=== PATIENT | male | born 1980 | race Caucasian/White ===

== ENCOUNTER 2018-05-16 19:16 | Emergency (ER) | payer OTHER ==
[~2018-05-16] VITALS: Ht 182.9 cm; Wt 136.4 kg
[2018-05-16 20:18] VITALS: BP 128/75
== END 2018-05-16 21:19 | disposition home or self-care (01) ==
LOC: ER 19:16
DX: I10 Essential (primary) hypertension (principal); F41.0 Panic disorder [episodic paroxysmal anxiety]
CPT/HCPCS: 93005; 99284

== ENCOUNTER 2018-05-28 22:46 | Emergency (ER) | payer SELFPAY ==
[~2018-05-28] VITALS: Ht 182.9 cm; Wt 128.0 kg
[2018-05-29] MEDS ORDERED: AZIT-63 PO (00:50)
[2018-05-29 00:58] VITALS: BP 135/79
== END 2018-05-29 01:00 | disposition home or self-care (01) ==
LOC: ER 22:47
DX: J01.00 Acute maxillary sinusitis, unspecified (principal); I10 Essential (primary) hypertension; R53.1 Weakness; R53.83 Other fatigue; R42 Dizziness and giddiness; Z79.2 Long term (current) use of antibiotics
CPT/HCPCS: 82948; 99283

== ENCOUNTER 2018-06-12 14:44 | Emergency (ER) | payer SELFPAY ==
[~2018-06-12] VITALS: Ht 182.9 cm; Wt 136.4 kg
[~2018-06-12 14:44] MED LIST: AZIT-63 PO
[2018-06-12] MEDS ORDERED: AMOX-580 PO (15:26)
[2018-06-12 15:39] LABS: BASOPHILS % (AUTO) 0.4 % (0-1); EOSINOPHILS # (AUTO) 0.2 X10'3 (0-0.9); EOSINOPHILS % (AUTO) 1.5 % (0-6); HEMATOCRIT 43.6 % (42.0-52.0); HEMOGLOBIN 14.8 g/dl (14.0-17.9); LYMPHOCYTES # (AUTO) 1.6 X10'3 (1.1-4.8); LYMPHOCYTES % (AUTO) 15.3 % (21-51); MEAN CORPUSCULAR HEMOGLOBIN 27.8 PG (27.0-31.0); MEAN CORPUSCULAR HGB CONC 33.8 % (33.0-36.5); MEAN PLATELET VOLUME 7.1 FL (7.4-10.4); MONOCYTES # (AUTO) 0.5 X10'3 (0-0.9); MONOCYTES % (AUTO) 5.2 % (2-12); NEUTROPHILS % (AUTO) 77.6 % (42-75); PLATELET COUNT 396 X10'3 (140-440); RED BLOOD COUNT 5.32 X10'6 (4.70-6.10); RED CELL DISTRIBUTION WIDTH 13.7 % (11.5-14.5); WHITE BLOOD COUNT 10.3 X10'3 (4.5-11.0)
[2018-06-12 15:49] LABS: ALBUMIN 3.7 G/DL (3.4-5.0); ANION GAP 9 (8-16); BLOOD UREA NITROGEN 12 MG/DL (7-18); BUN/CREATININE RATIO 11.9 (5.4-32.0); CALCIUM 9.3 MG/DL (8.5-10.1); CHLORIDE 100 MMOL/L (99-107); CREATININE 1.01 MG/DL (0.60-1.10); GLUCOSE 120 MG/DL (70-104); POTASSIUM 3.4 MMOL/L (3.5-5.1); SODIUM 135 MMOL/L (135-145); TOTAL CARBON DIOXIDE 25.6 MMOL/L (24-32); eGFR 82 ML/MIN
[2018-06-12 16:39] VITALS: BP 120/68
== END 2018-06-12 16:40 | disposition home or self-care (01) ==
LOC: ER 14:45
DX: R09.81 Nasal congestion (principal); R53.83 Other fatigue; G47.00 Insomnia, unspecified; I10 Essential (primary) hypertension
CPT/HCPCS: 36415; 80048; 85025; 99284

== ENCOUNTER 2018-06-14 23:45 | Emergency (ER) | payer OTHER ==
[~2018-06-14] VITALS: Ht 182.9 cm; Wt 136.4 kg
[~2018-06-14 23:45] MED LIST changes: +AMOX-580 PO
[2018-06-15] MEDS ORDERED: LISI1TAB9 PO (00:24)
[2018-06-15] MEDS ORDERED: MECL12.584 PO (01:47)
[2018-06-15 02:10] VITALS: BP 117/69
== END 2018-06-15 02:12 | disposition home or self-care (01) ==
LOC: ER 23:46
DX: R42 Dizziness and giddiness (principal); I10 Essential (primary) hypertension; Z79.899 Other long term (current) drug therapy
CPT/HCPCS: 82948; 93005; 99283